=== PATIENT | female | born 1945 | race Caucasian/White ===

== ENCOUNTER → 2016-11-06 | Day surgery (SDC) | payer MEDICARE, BC ==
[~2016-11-06] MED LIST: LACTATED RINGER'S 1,000 ML BAG IV ONE; LIDOCAINE 1%/EPINEPHrine 1:100,000 SOLN 20 ML VIAL ONE; MIDAZOLAM HCL 2 MG/2 ML VIAL ONE; PROPOFOL 500 MG/50 ML BTL IV ONE
--- NOTE | 2016-11-06 13:08 | TN ---
cc: ZCAH SELBY M.D. DATE OF SURGERY: 11/06/2016 PREOPERATIVE DIAGNOSIS 1. Left eye pain. 2. Left temporal pain. 3. Elevated sed rate. 4. Elevated CRP. POSTOPERATIVE DIAGNOSIS 1. Left eye pain. 2. Left temporal pain. 3. Elevated sed rate. 4. Elevated CRP. PROCEDURE Left temporal artery biopsy. SURGEON Dr. Zach Selby ANESTHESIA Local 1% lidocaine with epinephrine plus TIVA. INDICATIONS This is a pleasant 71-year-old woman sent to me in consultation by Dr. Mojica for evaluation of temporal artery biopsy. The patient has had prior autoimmune issues and a slight left-sided headache and left eye pain. CRP and ESR were mildly elevated. There was a question of temporal arteritis. She desired to proceed with temporal arterial biopsy. INTRAOPERATIVE FINDINGS Successful removal of about a 2 cm segment of temporal artery with a side branch. Specimen was sent to pathology. ESTIMATED BLOOD LOSS Minimal. DESCRIPTION OF PROCEDURE IN DETAIL The patient was identified as Raina Rivera, taken to the operating room and placed in supine position. Sequential compression devices were placed on bilateral lower extremities. Following IV sedation by Anesthesia, the left temporal area was prepped and draped in the usual sterile fashion with Betadine. A timeout procedure was performed. Following completion of the timeout procedure to everyone's satisfaction within the room, the proposed incision was made with a marking pen overlying the palpable pulse in the left temporal artery. 1% lidocaine with epinephrine was injected for local anesthesia. The incision was carried out with a scalpel and hemostasis controlled with electrocautery. Dissection continued posteriorly through the left temporal fascia until a branching left temporal artery was identified. The branches were from surrounding tissues and cross-clamped with either a mosquito hemostat or a small right angle clamp. The intervening segment to the artery was excised using scissor. The small ends of the artery were ligated with 4-0 silk ligatures. The wound was irrigated with the remaining local anesthetic. It was evaluated to ensure no arterial segment was left behind and none was seen. The wound was closed with interrupted inverted 4-0 Monocryl subcuticular sutures and dressed with Dermabond. The patient tolerated the procedure without apparent complication. Sponge, needle and instrument counts were correct at the end of the case. MD MARCELLUS Ibarra/SHIRA /12:51 PM /1:01 PM NEFTALY
== END | disposition home or self-care (01) ==
LOC: ESDC 10:43
PROVIDERS: ATTEND Surgery Trauma Surgery
DX: H57.12 Ocular pain, left eye (principal); R70.0 Elevated erythrocyte sedimentation rate; R79.82 Elevated C-reactive protein (CRP); R51 Headache
CPT/HCPCS: 00352; 37609; 88305; J2250; J3010; J7120; 88304